=== PATIENT | female | born 1965 | race Caucasian/White ===

== ENCOUNTER → 2021-09-07 | Outpatient (CLI) | payer OTHER ==
[~2021-09-07] MED LIST: LOSARTAN POTAS100 MG PO; MOBIC15 MG PO; NORVASC5 MG PO; SINGULAIR 10 MG10 MG PO; XYZAL5 MG PO
[2021-09-07 14:21] LABS: ABSOLUTE BASOPHILS 0.1 thou/uL (0.0-0.2); ABSOLUTE EOSINOPHILS 0.2 thou/uL (0.0-0.7); ABSOLUTE LYMPHOCYTES 2.4 thou/uL (0.8-5.3); ABSOLUTE MONOCYTES 0.7 thou/uL (0.0-1.2); ABSOLUTE NEUTROPHILS 4.3 thou/uL (1.6-8.1); BASOPHILS 0.9 %; HEMATOCRIT 38.3 % (37.0-47.0); HEMOGLOBIN 13.2 gm/dL (12.0-15.0); LYMPHOCYTES 30.9 %; MCH 32.1 pg (26.0-34.0); MCHC 34.3 g/dL (28.0-37.0); MCV 93.6 fL (80.0-100.0); MONOCYTES 8.5 %; MPV 6.4 fl. (7.2-11.1); NUCLEATED RBCS 0 /100WBC; PLATELET COUNT* 328 thou/uL (150-400); POLYS 56.7 %; RBC 4.09 mil/uL (4.20-5.00); RDW-CV 13.6 % (10.5-14.5); WBC 7.6 thou/uL (4.0-11.0)
[2021-09-07 14:25] LABS: URINE BILIRUBIN NEGATIVE (Negative); URINE BLOOD NEGATIVE (Negative); URINE COLOR YELLOW; URINE GLUCOSE-RANDOM NEGATIVE (Negative); URINE KETONES NEGATIVE (Negative); URINE LEUKOCYTES-REFLEX TRACE (Negative); URINE NITRITE-REFLEX NEGATIVE (Negative); URINE PROTEIN NEGATIVE (Negative); URINE UROBILINOGEN 0.2 E.U./dl (0.2-1.0)
[2021-09-07 14:26] LABS: URINE CLARITY HAZY
[2021-09-07 14:32] LABS: BACTERIA-REFLEX None Seen /HPF (None Seen); CASTS None Seen /LPF (None Seen); CRYSTALS None Seen /LPF (None Seen); SQUAMOUS 0-3 Few /LPF (0-3); URINE RBC None Seen /HPF (0-2); URINE WBC-REFLEX 0-5 Rare /HPF (0-5)
[2021-09-07 14:36] LABS: ALBUMIN 4.4 g/dL (3.4-5.0); CALCIUM 9.2 mg/dL (8.5-10.1); CREATININE 0.7 mg/dL (0.6-1.3); POTASSIUM 3.8 mmol/L (3.5-5.1); TOTAL BILIRUBIN 0.7 mg/dL (<0.1-1.0); TOTAL PROTEIN 8.2 g/dL (6.4-8.2)
--- NOTE | 2021-09-07 15:18 | EKG ---
[place] [address] ELECTROCARDIOGRAM REPORT Name: GRICELDA MELENDREZ Room: [facility]#: [id number] Admission: 09/07/21 Attend Phys: Dalton Zepeda, Discharge: Date of : 63 Date of Service: 09/07/217 Report #: [id number] THIS REPORT FOR: //name// [facility] Test Date: 2021-09-07 Test Time: 14:27:09 Pat Name: GRICELDA MELENDREZ Department: Room: Gender: F Hvac/R Instructor: Tory ANDERSON RN : 1965 Requested By: Dalton Zepeda Order Number: [id number] Maryellen MD: Roverto Dewitt Measurements Intervals [place] Rate: 83 P: 43 [place]: 149 QRS: 39 QRSD: 96 T: 42 QT: 399 QTc: 469 Interpretive Statements Sinus rhythm No previous ECG available for comparison Electronically Signed On 09-07-2021 15:17:49 QUILL FIXER by Roverto Dewitt [email or web address] <ELECTRONICALLY SIGNED> By: Roverto Dewitt MD, [facility] 09/07/21 1517 1427 142 Roverto Dewitt MD, FACC /EPI
== END ==
LOC: M.LAB 05:51
PROVIDERS: ATTEND Orthopaedic Surgery
DX: Z01.818 Encounter for other preprocedural examination (principal); Z01.812 Encounter for preprocedural laboratory examination; M19.011 Primary osteoarthritis, right shoulder

== ENCOUNTER 2021-09-12 06:46 | Observation (INO) | payer OTHER ==
[~2021-09-12] VITALS: Ht 152.4 cm; Wt 68.0 kg
[2021-09-12 15:49] VITALS: BP 120/58
[2021-09-12 21:25] VITALS: BP 123/65
[2021-09-12 23:52] VITALS: BP 131/65
[2021-09-13 04:00] VITALS: BP 119/67
--- NOTE | 2021-09-13 07:44 | NUR ---
PATIENT HAS SLEPT WELL THROUGHOUT MOST OF THE NIGHT. VSS ON RA. PAIN WELL CONTROLLED. MEDICATIONS GIVEN ORDERED AND CHARTED. RIGHT ARM IN SLING AND POLAR PACK IN PLACE. IV IN LEFT HAND-SL. IV ABT GIVEN ORDERED WITH NO ADVERSE SIDE EFFECTS NOTED. PATIENT INSTRUCTED TO USE CALL LIGHT WHEN NEEDING ASSISTANCE. HOURLY ROUNDS MADE. WILL CONTINUE WITH PLAN OF CARE AND NURSING TO MONITOR.
[2021-09-13 08:00] VITALS: BP 119/74
--- NOTE | 2021-09-13 10:29 | NUR ---
cm completed assessment with pt who indciated she lives in home with spouse. is active an independent with cares. pt has no hx with snf or , or preference. cm faxed orders to [facility]. [phone]. pt has no dmes.
[2021-09-13] MEDS ORDERED: XARELTO10 MG PO (13:16)
[2021-09-13 13:23] VITALS: BP 144/78
--- NOTE | 2021-09-13 13:33 | OP ---
[address] [address] OPERATIVE REPORT Name: GRICELDA MELENDREZ Room: [address]R.#: [id number] Admission: 09/12/21 Attend Phys: [facility] Discharge: Date of : 63 Report #: [id number] THIS REPORT FOR: cc: Maddi Salinas,Dalton Lazaro II, DO ~ DATE OF SURGERY: 09/12/2021 PREOPERATIVE DIAGNOSIS: Right shoulder glenohumeral joint osteoarthritis with end-stage rotator cuff tears. POSTOPERATIVE DIAGNOSIS: Right shoulder glenohumeral joint osteoarthritis with end-stage rotator cuff tears. PROCEDURE PERFORMED: Right reverse total shoulder arthroplasty. SURGEON: Dalton Zepeda II, DO. [employer] SUPERVISOR: JEROME Vasquez. ANESTHESIA: Per operative record. ESTIMATED BLOOD LOSS: 50 mL. ANTIBIOTICS: Per operative record. COMPLICATIONS: None. CONDITION: The patient stable to recovery room. IMPLANTS: [place]set reverse shoulder arthroplasty system listed in chart. DESCRIPTION OF PROCEDURE: The patient was taken to the operative suite, placed supine on the operating table, given appropriate anesthesia. The patient's affected shoulder was sterilely prepped and draped in modified beach chair position. All bony prominences well padded. Surgery began by an anterior deltopectoral incision of the right shoulder. This was carried down to subcutaneous tissues. Deltopectoral incision was then made and the deltoid was retracted laterally with careful attention paid to the cephalic vein. There was shown to be capsular tears anteriorly as well as subscap tears and prior rotator cuff tears with end-stage rotator cuff deficiency. The subscapularis was reflected off of the anterior aspect of the humerus and the humerus was delivered out into the operative field. I was then starting reamed throughout the proximal aspect of canal down into the canal. This was left in place and the cut was made to the head to remove the head in appropriate fashion with appropriate version. It was then broached [place] [address] OPERATIVE REPORT Name: GRICELDA MELENDREZ Room: [address] M.R.#: [id number] Admission: 09/12/21 Attend Phys: [facility] Discharge: Date of : 63 Report #: [id number] appropriate broach was left in place. The protective hubcap was then placed on top of the humerus to protect it as it was retracted. Attention was then turned to the glenoid. Excess labrum was removed from the glenoid. Guide pin was placed. The glenoid reamer was deployed and reamed down to punctate bleeding. The glenoid baseplate was then secured in position with central cancellous screw and a proximal superior and inferior screw. The glenosphere was then trialed with the eccentric component and shown to have excellent position. The humerus was then trialed with appropriate head length and shown to have excellent full range of motion of the shoulder without evidence of dislocation. These trials were then removed. The finals were then malleted together on the back table. The glenosphere was malleted in position and the shoulder was then reduced in near anatomic fashion. The patient has full range of motion at the completion of the case without evidence of dislocation. Hemostasis was maintained throughout the case with electrocautery. Pain cocktail had been previously injected with a interscalene block. Irrigation was performed of the wound. It was then closed. There was a subscap, was reattached to the humerus, utilizing a #2 FiberWire in [id number] fashion. The deltopectoral incision was then closed utilizing a #1 Vicryl for the deep layer, 2-0 Vicryl and a running Monocryl stitch. Dermabond and sterile dressing applied. The patient transported to recovery room in a sling. Counts were correct throughout the procedure. <ELECTRONICALLY SIGNED> By: Dalton Zepeda II, DO 09/13/21 1333 16 1942Rtootie Zepeda II, DO /nt
[2021-09-13 14:21] VITALS: BP 144/78
== END 2021-09-13 13:55 | disposition home or self-care (01) ==
LOC: M.TBA 06:46 → M.PRE 08:31 → M.TBA 09:17 → M.PRE 10:21 → M.3W 14:32
PROVIDERS: ADMIT Internal Medicine; ATTEND Internal Medicine
DX: M19.011 Primary osteoarthritis, right shoulder (principal); I10 Essential (primary) hypertension; Z20.822 Contact with and (suspected) exposure to COVID-19; Z90.710 Acquired absence of both cervix and uterus; Z98.890 Other specified postprocedural states; Z85.828 Personal history of other malignant neoplasm of skin